=== PATIENT | female | born 1990 ===

== ENCOUNTER 2018-11-24 03:57 | Outpatient (CLI) | payer OTHER ==
[2018-11-24 05:04] LABS: APPEARANCE,URINE SLIGHTLY-CLOUDY; BILIRUBIN,URINE NEGATIVE (NEGATIVE); COLOR,URINE YELLOW; GLUCOSE, URINE NEGATIVE (NEGATIVE); KETONES,URINE NEGATIVE (NEGATIVE); LEUKOCYTE ESTERASE,URINE TRACE (NEGATIVE); NITRITE,URINE NEGATIVE (NEGATIVE); PROTEIN,URINE NEGATIVE (NEGATIVE); URINE SPECIFIC GRAVITY 1.013; UROBILINOGEN,URINE NEGATIVE mg/dL (<2.0)
[2018-11-24 05:23] LABS: URINE AMPHETAMINES SCREEN NEGATIVE; URINE BARBITURATES SCREEN NEGATIVE; URINE BENZODIAZEPINES SCREEN NEGATIVE; URINE COCAINE SCREEN NEGATIVE; URINE MARIJUANA (THC) SCREEN NEGATIVE; URINE METHADONE SCREEN NEGATIVE; URINE PHENCYCLIDINE SCREEN NEGATIVE
[2018-11-24] MEDS ORDERED: OXYCODONE-ACETAMINOPHEN 5-325 MG TABLET PO ONE (05:55)
[2018-11-24] MEDS ORDERED: ZOLPIDEM TARTRATE 5 MG TABLET PO ONE (05:55)
--- NOTE | 2018-11-24 06:19 | Non Stress Test Report ---
Non Stress Test Datetime Report Generated by CPN: 11/24/2018 06:19 DEMOGRAPHIC EGA NST: 40.6 INDICATION Indication for Study: Ordered by Provider URINE RESULTS Urine Protein, NST: Negative Urine Ketones - NST: Negative Urine Glucose - NST: Negative Urine Blood - NST: Positive MONITORING Monitor Explained: Monitor Explained; Test Explained; Patient Verbalized Understanding Time on Monitor: 11/24/2018 04:22 Time off Monitor: 11/24/2018 05:23 NST Duration: 61 NST INTERVENTIONS NST Interventions: PO Hydration Physician Notified NST: Dr. Park BABY A: [id number] BABY A Movement : Present Contraction Frequency : Irregular FHR Baseline : 135 Accelerations : 15X15 Decelerations : None Variability : Moderate 6-25bpm NST Review: Meets Criteria for Reactive NST NST Review and Verified By : Pop Bowen RN NST Results: Reactive NST REPORT Report Trigger: Send Report
== END 2018-11-24 06:10 | disposition home or self-care (01) ==
LOC: LC 03:57
PROVIDERS: ATTEND Obstetrics & Gynecology
PROC: 4A1HXCZ Monitoring of Products of Conception, Cardiac Rate, External Approach (ICD-10-PCS; principal; 2018-11-24)
DX: O48.0 Post-term pregnancy (principal); Z3A.40 40 weeks gestation of pregnancy
CPT/HCPCS: 59025; 80307; 81005; 84112

== ENCOUNTER 2018-11-24 10:17 | Inpatient (IN) | payer OTHER ==
[2018-11-24] MEDS ORDERED: LIDOCAINE 1% INJ-PF (10 MG/ML) 30 ML SDV ONE (10:57)
[2018-11-24] MEDS ORDERED: MISOPROSTOL 0.2 MG TABLET ONE (10:57)
[2018-11-24] MEDS ORDERED: OXYTOCIN/NORMAL SALINE 20 UNIT/1,000 ML RTUINJ ONE ×2 (10:57→15:48)
[2018-11-24] MEDS ORDERED: RINGERS SOLUTION,LACTATED 1,000 ML IV ONE (10:59)
[2018-11-24] MEDS ORDERED: RINGERS SOLUTION,LACTATED 1,000 ML IV PRN (10:59)
[2018-11-24 11:47] LABS: ABSOLUTE LYMPHOCYTES (AUTO) 0.9 10^3/uL (0.5-4.7); ABSOLUTE MONOCYTES (AUTO) 0.5 10^3/uL (0.1-1.4); ABSOLUTE NEUT (AUTO) 8.8 10^3/uL (1.7-8.2); BASOPHILS % (AUTO) 0.1 % (0-2); HEMOGLOBIN 11.5 g/dL (12.0-15.5); LYMPHOCYTES % (AUTO) 8.7 % (13-45); MEAN CORPUSCULAR HEMOGLOBIN 26.7 pg (27.0-33.4); MEAN CORPUSCULAR HGB CONC 32.8 g/dL (32.0-36.0); MEAN CORPUSCULAR VOLUME 82 fl (80-97); MONOCYTES % (AUTO) 5.3 % (3-13); PLATELET COUNT 206 10^3/uL (150-450); RED BLOOD COUNT 4.29 10^6/uL (3.72-5.28); RED CELL DISTRIBUTION WIDTH 15.9 % (11.5-14.0); SEGMENTED NEUTROPHILS % (AUTO) 85.9 % (42-78); TOTAL CELLS COUNTED % (AUTO) 100 %; WHITE BLOOD COUNT 10.3 10^3/uL (4.0-10.5)
[2018-11-24] MEDS ORDERED: NALBUPHINE HCL INJ 10 MG/1 ML AMPULE ONE ×2 (12:12→15:12)
[2018-11-24] MEDS ORDERED: PROMETHAZINE HCL INJ 25 MG/1 ML VIAL ONE ×2 (12:12→15:12)
[2018-11-24] MEDS ORDERED: NALBUPHINE HCL INJ 10 MG/1 ML AMPULE INJ ONE (12:45)
[2018-11-24] MEDS ORDERED: PROMETHAZINE HCL INJ 25 MG/1 ML VIAL IV ONE (12:45)
--- NOTE | 2018-11-24 14:16 | Admission Physical ---
Datetime Report Generated by CPN: 11/24/2018 14:16 CURRENT ADMISSION Chief Complaint: Uterine Contractions Admit Impression : Term, Intrauterine Admit Plan: Admit to Unit; Initiate Labor Protocol ALLERGIES Medication Allergies: No Medication Allergies: No Known Allergies (11/24/2018) Latex: No Latex Allergies Food Allergies: n/a Environmental Allergies: n/a OBSTETRICAL HISTORY EDC: 11/18/2018 00:00 : 1 Para: 0 Term: 0 : 0 SAB: 0 IAB: 0 Ectopic: 0 Livin Cesareans: 0 VBACs: 0 Multiple Births: 0 Gestational Diabetes: No Rh Sensitization: No Incompetent Cervix: No AZIZA: No Infertility: No ART Treatment: No Uterine Anomaly: No IUGR: No Hx Previous C/S: No Macrosomia: No Hx Loss/Stillborn: No PIH: No Hx : No Placenta Previa/Abruption: No Depression/PP Depression: No PTL/PROM: No Post Hemorrhage: No Current Procedures: Ultrasound Obstetrical History Comments: G1: current SEE RECORDS Alcohol: No Marijuana : No Cocaine: No Other Illicit Drugs: No Cigarettes: Never Smoker. 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 Heart Disease: No Hosp/Surgery: Yes Autoimmune Disorder: No Anesthetic Complications: No Kidney Disease: No Abnormal Pap Smear: No Neuro/Epilepsy: No Psychiatric Disorders: No Other Medical Diseases: No Hepatitis/Liver Disease: No Significant Family History: No Varicosities/Phlebitis: No Trauma/Violence : No Thyroid Dysfunction: No Medical History Comments: tonsillectomy, wisdom teeth, tissue from back of head removed INFECTIOUS HISTORY Gonorrhea: No Genital Herpes: No Chlamydia: No Tuberculosis: No Syphilis: No Hepatitis: No HIV/AIDS Exposure: No Rash or Viral Illness: No HPV: No PHYSICAL EXAM General: Normal HEENT: Normal Neurologic: Normal Thyroid: Normal Heart: Normal Lungs: Normal Breast: Normal Back: Normal Abdomen: Normal Genitourinary Exam: Normal Extremities: Normal DTRs: Normal Pelvic Type: Adequate Vital Signs: Reviewed; Within Normal Limits VAGINAL EXAM Dilatation: 4-5 Effacement: 100 Station: -1 Contraction Comments: irregular MEMBRANES Membranes: Intact FETUS A EGA: 40.6 Monitoring: External US FHR- Baseline: 120s Variability: Moderate 6-25bpm Accelerations: 15X15 Decelerations: None FHR Category: Category I Admit Comment: presented to L_D c/o contractions. She was seen earlier this morning and her cervix was 3 cm. Now was 4-5 cm. She is GBS Negative. PLANS FOR LABOR AND DELIVERY Labor and Delivery: None Pain Management: Natural; Medications Feeding Preference: Breast Benefit of Breast Feed Discussed: Yes Circumcision: Yes INFORMED CONSENT Signature: with User ID: [email or web address]
[2018-11-24] MEDS ORDERED: OXYTOCIN/NORMAL SALINE 20 UNIT/1,000 ML RTUINJ IV PRN ×2 (15:53→19:31)
[2018-11-24] MEDS ORDERED: DIBUCAINE 1% OINTMENT 56 GM TP PRN (19:31)
[2018-11-24] MEDS ORDERED: ACETAMINOPHEN WITH CODEINE #3 TABLET PO PRN ×2 (19:31)
[2018-11-24] MEDS ORDERED: BENZOCAINE/MENTHOL AEROSOL SPRAY 56 ML TOP PRN (19:31)
[2018-11-24] MEDS ORDERED: ZOLPIDEM TARTRATE 5 MG TABLET PO PRN (19:31)
[2018-11-24] MEDS ORDERED: DIPH/PERTUSS(ACELL)/TETANUS VAC/PF 0.5 ML SYR (>=10YO) IM PRN (19:31)
[2018-11-24] MEDS ORDERED: ACETAMINOPHEN WITH CODEINE #3 TABLET ONE (19:41)
[2018-11-24] MEDS ORDERED: IBUPROFEN 800 MG TABLET ONE (19:41)
--- NOTE | 2018-11-24 22:49 | Warning Signs in Babies ---
VOD Warning Signs Datetime Report Generated by [facility]: 11/24/2018 22:48 VOD#[id number] -Warning Signs in Babies: Needs to be viewed. (11/24/2018 21:44:Marybeth Toth RN)
--- NOTE | 2018-11-24 22:56 | Delivery Summary ---
Del Sum A-C Datetime Report Generated by CPN: 11/24/2018 22:55 DELIVERY PERSONNEL DELIVERY PERSONNEL: [id number] Delivery Doctor:: Mariana Parker MD Labor and Delivery Nurse:: Mary Saxena RNpediatric radiologist Nurse:: DANIEL Carrillo Client Program Manager/DIRECTOR MUSIC: Marcellanasim Gipson, ST MATERNAL INFORMATION Delivery Anesthesia: Local Medications After Delivery: Pitocin Bolus-Please Comment Meds After Delivery Comment: Pitocin 20 units in 1000 ml nss open for bolus Estimated Blood Loss (ml): 500 Delivery QBL Comment: 200 Maternal Complications: None Provider Comments: of a viable male @ 1857 with an ZAIRE presentation; APGARS 8, 9; 2nd degree midline vaginal lac LABOR SUMMARY EDC: 11/18/2018 00:00 No. Babies in Womb: 1 Attempted: No Labor Anesthesia: IV Sedation LABOR INFORMATION Reason for Induction: Not Applicable Onset of Labor: 11/24/2018 10:30 Complete Dilatation: 11/24/2018 18:12 Oxytocin: Augmentation Group B Beta Strep: Negative Antibiotics # of Doses: N/A Antibiotics Time of Last Dose: N/A Name of Antibiotic Given: N/A Steroids Given: None Reason Steroids Not Administered: Not Applicable MEMBRANES Membranes Rupture Method: Artificial Rupture of Membranes: 11/24/2018 14:25 Length of Rupture (hr): 4.53 Amniotic Fluid Color: Light Meconium Amniotic Fluid Amount: Moderate Amniotic Fluid Odor: Normal STAGES OF LABOR Stage 1 hr: 7 Stage 1 min: 42 Stage 2 hr: 0 Stage 2 min: 45 Stage 3 hr: 0 Stage 3 min: 6 Total Time in Labor hr: 8 Total Time in Labor min: 33 VAGINAL DELIVERY Episiotomy: None Laceration #1: Perineal; Vaginal Laceration Extension #1: Second Degree Laceration Repair: Yes Laceration Repair Note: 2nd degree midline vaginal lac repaired with 2-0 Vicryl Sponge Count Correct: N/A Sharps Count Correct: N/A CSECTION DELIVERY Primary Indication: N/A Secondary Indication: N/A CSection Incidence: N/A Labor: N/A Elective: N/A CSection Incision: N/A BABY A INFORMATION Infant Delivery Date/Time: 11/24/2018 18:57 Method of Delivery: Vaginal Born in Route : No : N/A Forceps: N/A Vacuum Extraction: N/A Shoulder Dystocia : No PRESENTATION/POSITION BABY A Presentation: Cephalic Cephalic Presentation: Vertex Vertex Position: Left Occipital Anterior Breech Presentation: N/A PLACENTA INFORMATION BABY A Placenta Delivery Time : 11/24/2018 19:03 Placenta Method of Delivery: Spontaneous Placenta Status: Delivered SCORES BABY A Heart Rate 1 min: >100 bpm Resp Effort 1 min: Good Cry Reflex Irritability 1 min: Cough or Sneeze or Pulls Away Muscle Tone 1 min: Some Flexion of Extremities Color 1 min: Body [place], Extremities Blue Resuscitation Effort 1 min: Tactile Stimulation SCORE 1 MIN: 8 Heart Rate 5 min: >100 bpm Resp Effort 5 min: Good Cry Reflex Irritability 5 min: Cough or Sneeze or Pulls Away Muscle Tone 5 min: Active Motion Color 5 min: Body [place], Extremities Blue Resuscitation Effort 5 min: N/A SCORE 5 MIN: 9 Resuscitation Effort 10 min: N/A INFORMATION BABY A Gestational Age at Delivery: 40.6 Gestational Status: Full Term- 39- 40.6 Weeks Infant Outcome : Liveborn Condition : Stable Infant Sex: Male IDENTIFICATION BABY A Infant Verification Date/Time: 11/24/2018 19:51 ID Band Number: [id number] Mother's Name Verified: Yes Infant RN Verifying : Jesusita HindsKaley RN Additional Verifying Personnel: Ring, B. RN WEIGHT/LENGTH BABY A Birthweight (gm): 3855 Weight (lb): 8 Weight (oz): 8 Infant Length (in): 20.00 Infant Length (cm): 50.80 CORD INFORMATION BABY A No. Cord Vessels: 3 Nuchal Cord : N/A Cord Blood Taken: Yes-For Storage (Mom's Blood type +) Suction: None ASSESSMENT BABY A Complications: Meconium Physical Findings at Delivery: Caput Succedaneum; Molding of the Head Infant Respirations: Appears Normal Skin to Skin: Yes Skin to Skin Time (min): 30 Bottom Stainer/ALS Called : No Transferred To: Remains with Mother BABY B INFORMATION : N/A SIGNATURES Signature: with User ID: [email or web address]
[2018-11-24] MEDS: IBUPROFEN 800 MG TABLET PO SCH (23:00)
[2018-11-25] MEDS: IBUPROFEN 800 MG TABLET PO SCH ×3 (05:18→22:08)
[2018-11-25 07:40] LABS: HEMATOCRIT 30.4 % (36.0-47.0); HEMOGLOBIN 9.9 g/dL (12.0-15.5); MEAN CORPUSCULAR HEMOGLOBIN 26.5 pg (27.0-33.4); MEAN CORPUSCULAR HGB CONC 32.5 g/dL (32.0-36.0); MEAN CORPUSCULAR VOLUME 81 fl (80-97); PLATELET COUNT 306 10^3/uL (150-450); RED BLOOD COUNT 3.74 10^6/uL (3.72-5.28); RED CELL DISTRIBUTION WIDTH 16.2 % (11.5-14.0); WHITE BLOOD COUNT 16.4 10^3/uL (4.0-10.5)
[2018-11-25] MEDS: FERROUS SULFATE 325 MG TABLET PO SCH ×2 (09:25→18:30)
[2018-11-25] MEDS: SENNOSIDES/DOCUSATE 8.6-50 MG 1 EACH TABLET PO SCH (09:25)
[2018-11-25] MEDS: DOCUSATE SODIUM 100 MG CAPSULE PO SCH ×2 (09:25→18:30)
[2018-11-25] MEDS: PRENATAL VITAMIN W DHA CAPSULE PO SCH (09:25)
--- NOTE | 2018-11-25 10:41 | PDOC PROGRESS REPORT ---
Subjective-OB Progress Note for:: 11/25/18 Subjective: 28yo G1 now P1 s/p ppd1. Ambulating, and voiding without difficulty. Denies any concerns at this time. Physical Exam (OB) Vital Signs: Temp Pulse Resp BP Pulse Ox 97.9 F 100 16 116/69 100 11/25/18 07:26 11/25/18 07:26 11/25/18 07:26 11/25/18 07:26 11/25/18 07:26 Intake & Output 11/24/18 11/25/18 11/26/18 06:59 06:59 06:59 Intake Total 400 Balance 400 Weight 99 kg - General General Appearance: Appears well In distress: None - PIH/Pre-Eclampsia DTR's: 2 + Clonus: Negative Headache: Absent Epigastric Pain: No Visual Changes: No - Episiotomy/Laceration Site Condition: Well Approximated - Lochia Lochia Amount: Small 10-25 ml Lochia Color: Rubra/Red - Abdomen Hernia Present: No Fundal Description: Firm, Midline Fundal Height: u/u - u/2 - Respiratory Respiratory Status: No respiratory distress - Extremities Upper extremity: Normal inspection Lower extremities: Normal inspection - Neurological Cognition: Normal Orientation: AAOx4 - Psychological Associated symptoms: Flat affect Objective-Diagnostic Laboratory: 11/25/18 07:15 11/24/18 11/24/18 11/25/18 11:30 11:30 07:15 WBC 10.3 16.4 H RBC 4.29 3.74 Hgb 11.5 L 9.9 L Hct 35.0 L 30.4 L MCV 82 81 MCH 26.7 L 26.5 L MCHC 32.8 32.5 RDW 15.9 H 16.2 H Plt Count 206 306 Seg Neutrophils % 85.9 H Lymphocytes % 8.7 L Monocytes % 5.3 Eosinophils % 0.0 Basophils % 0.1 Absolute Neutrophils 8.8 H Absolute Lymphocytes 0.9 Absolute Monocytes 0.5 Absolute Eosinophils 0.0 Absolute Basophils 0.0 Blood Type A POSITIVE Antibody Screen NEGATIVE Assessment and Plan(PN) - Assessment and Plan (1) Acute blood loss anemia Is this a current diagnosis for this admission?: Yes Plan: increase dietary iron and FeSO4 BID (2) Delivery normal Is this a current diagnosis for this admission?: Yes Plan: Routine pp care (3) hemorrhage Qualifiers: hemorrhage type: unspecified Qualified Code(s): O72.1 - Other im mediate hemorrhage Is this a current diagnosis for this admission?: Yes Plan: bleeding stable at this time. Continue to monitor for s/s of decompensation/need for iron/blood. (4) Second degree perineal laceration, delivered, current hospitalization Is this a current diagnosis for this admission?: Yes Plan: continue to monitor for s/s of infection - Time Spent with Patient Time with patient: Less than 15 minutes Medications reviewed and adjusted accordingly: Yes - Disposition Anticipated Discharge: Home Within: within 24 hours
[2018-11-26] MEDS: IBUPROFEN 800 MG TABLET PO SCH (05:28)
--- NOTE | 2018-11-26 09:21 | PDOC DISCHARGE SUMMARY ---
Final Diagnosis Discharge Date: 11/26/18 - Final Diagnosis (1) Normal vaginal delivery Is this a current diagnosis for this admission?: Yes (2) Second degree perineal laceration, delivered, current hospitalization Is this a current diagnosis for this admission?: Yes Discharge Data - Discharge Medication Prescriptions: Ibuprofen [Motrin 800 mg Tablet] 800 mg PO Q8HP PRN #60 tablet PRN Reason: Home Medications: Ferrous Sulfate [Iron] 325 mg PO DAILY 11/24/18 Vits96/Iron Fum/Folic [ Tablet] 1 each PO DAILY 11/24/18 Ibuprofen [Motrin 800 mg Tablet] 800 mg PO Q8HP PRN #60 tablet 11/26/18 Procedures: NST Intrapartum Procedure(s): Spontaneous Vaginal Delivery Complication(s): Laceration-Vaginal Laceration-Degree: 2nd - Diagnosis Test Laboratory: Temp Pulse Resp BP Pulse Ox 97.9 F 103 H 18 112/76 98 11/26/18 07:35 11/26/18 07:35 11/26/18 07:35 11/26/18 07:35 11/26/18 07:35 11/24/18 11/25/18 11:30 07:15 RBC 4.29 3.74 Hgb 11.5 L 9.9 L Hct 35.0 L 30.4 L - Discharge information/Instructions Discharge Activity: Balance Activity w/Rest, Pelvic Rest Discharge Diet: Regular Disposition: HOME, SELF-CARE Follow up with: [facility] in: 4, Weeks
[2018-11-26] MEDS: DOCUSATE SODIUM 100 MG CAPSULE PO SCH (09:37)
[2018-11-26] MEDS: FERROUS SULFATE 325 MG TABLET PO SCH (09:37)
[2018-11-26] MEDS: PRENATAL VITAMIN W DHA CAPSULE PO SCH (09:37)
[2018-11-26] MEDS: SENNOSIDES/DOCUSATE 8.6-50 MG 1 EACH TABLET PO SCH (09:37)
[2018-11-26 10:49] VITALS: BP 118/72
== END 2018-11-26 12:25 | disposition home or self-care (01) | DRG 806 ==
LOC: LC 10:17 → LR 10:51 → 2S 22:10
PROVIDERS: ADMIT Obstetrics & Gynecology; ATTEND Obstetrics & Gynecology
PROC: 10E0XZZ Delivery of Products of Conception, External Approach (ICD-10-PCS; principal; 2018-11-24)
PROC: 0KQM0ZZ Repair Perineum Muscle, Open Approach (ICD-10-PCS; 2018-11-24)
DX: O70.1 Second degree perineal laceration during delivery (principal); O72.1 Other immediate postpartum hemorrhage; Z37.0 Single live birth; O77.0 Labor and delivery complicated by meconium in amniotic fluid; D62 Acute posthemorrhagic anemia; O99.02 Anemia complicating childbirth; Z3A.40 40 weeks gestation of pregnancy
CPT/HCPCS: 36415; 85025; 85027; 86592; 86850; 86900; 86901; 94760; J2300; J2550; J2590; J3490